=== PATIENT | female | born 1985 | race Caucasian/White ===

== ENCOUNTER 2018-11-14 01:40 | Inpatient (IN) | payer OTHER ==
[2018-11-14] MEDS ORDERED: BUTORPHANOL 2 MG INJ (02:18)
[2018-11-14] MEDS ORDERED: METHYLERGONOVINE 0.2 MG INJ IM ×2 (02:30→06:00)
[2018-11-14] MEDS ORDERED: MISOPROSTOL 200 MCG TAB PR ×2 (02:30→06:00)
[2018-11-14] MEDS ORDERED: IBUPROFEN 600 MG TAB PO (02:30)
[2018-11-14] MEDS ORDERED: CARBOPROST 250 MCG INJ IM ×2 (02:30→06:00)
[2018-11-14] MEDS ORDERED: AMPICILLIN 2 GM/NS (PMX) 100 ML IV (02:30)
[2018-11-14] MEDS ORDERED: OXYTOCIN 30 UNITS/LR 500 ML IV ×2 (02:30→06:00)
[2018-11-14] MEDS ORDERED: LIDOCAINE 1% (MPF) 30 ML INJ INJ (02:30)
[2018-11-14 02:34] LABS: ADD MAN DIFF? NO
[2018-11-14] MEDS: LACTATED RINGER'S 1,000 ML IV ×2 (02:34→03:26)
[2018-11-14 02:38] LABS: BASOPHILS % 0.4 % (0.0-2.0); EOSINOPHILS # 0.1 10^3/ul (0.0-0.5); EOSINOPHILS % 1.5 % (0.0-7.0); HEMOGLOBIN 11.9 g/dl (12.0-16.0); LYMPHOCYTES # 2.2 10^3/ul (0.8-2.9); LYMPHOCYTES % 27.1 % (15.0-51.0); MEAN CORPUSCULAR HEMOGLOBIN 28.5 pg (29.0-33.0); MEAN CORPUSCULAR HGB CONC 32.2 g/dl (32.0-37.0); MEAN CORPUSCULAR VOLUME 88.7 fl (82.0-101.0); MEAN PLATELET VOLUME 11.4 fl (7.4-10.4); MONOCYTE # 0.8 10^3/ul (0.3-0.9); MONOCYTES % 9.8 % (0.0-11.0); NEUTROPHIL # 4.9 10^3/ul (1.6-7.5); NEUTROPHILS % 60.8 % (39.0-77.0); PLATELET COUNT 192 10^3/UL (140-415); RED BLOOD COUNT 4.17 10^6/ul (4.20-5.40); RED CELL DISTRIBUTION WIDTH 14.3 % (11.5-14.5)
[2018-11-14] MEDS: BUTORPHANOL 2 MG INJ IV (02:43)
[2018-11-14 02:58] LABS: INR 0.82; PARTIAL THROMBOPLASTIN TIME 25.4 Sec (23.0-35.0); PROTIME 11.4 Sec (11.9-14.9); PT RATIO 0.9
[2018-11-14 02:59] LABS: AMPHETAMINE/METHAMPHETAMINE Negative (NEGATIVE); BARBITURATES Negative (NEGATIVE); BENZODIAZEPINES Negative (NEGATIVE); CANNABINOIDS Negative (NEGATIVE); COCAINE Negative (NEGATIVE); OPIATES Negative (NEGATIVE)
[2018-11-14] MEDS ORDERED: ROPIVACAINE 0.2% 100 ML (03:23)
[2018-11-14] MEDS ORDERED: HYDROmorphONE 0.5 MG/0.5 ML SYG IV ×2 (03:30)
[2018-11-14] MEDS ORDERED: ONDANSETRON 4 MG INJ IV (03:30)
[2018-11-14] MEDS ORDERED: DIPHENHYDRAMINE 50 MG INJ IV (03:30)
[2018-11-14] MEDS ORDERED: KETOROLAC 30 MG INJ IV (03:30)
[2018-11-14] MEDS ORDERED: NALOXONE (0.4 MG/ML) INJ IV (03:30)
[2018-11-14] MEDS ORDERED: ROPIVACAINE 0.2% 100ML BAG EPI (03:30)
[2018-11-14 03:48] LABS: HEPATITIS B SURFACE ANTIGEN NEGATIVE (NEGATIVE)
[2018-11-14] MEDS: OXYTOCIN 30 UNITS/LR 500 ML IV ×2 (04:01→04:13)
[2018-11-14] MEDS: IBUPROFEN 600 MG TAB PO ×4 (06:00→23:34)
[2018-11-14] MEDS ORDERED: OXYCODONE/ASPIRIN (4.88/325) TAB PO (06:00)
[2018-11-14] MEDS ORDERED: ZOLPIDEM 5 MG TAB PO (06:00)
[2018-11-14] MEDS: BENZOCAINE 20% 56 ML SPRAY TOP (06:24)
[2018-11-14] MEDS: WITCH HAZEL/GLYCERIN PAD PR (06:25)
[2018-11-14] MEDS: LANOLIN HPA 1 PKT TOP (06:25)
[2018-11-14] MEDS ORDERED: AMPICILLIN 1 GM/NS (PMX) 50 ML IV (06:30)
[2018-11-14] MEDS: SENNA/DOCUSATE NA (8.6MG/50MG) TAB PO ×2 (09:28→21:03)
[2018-11-14 19:24] LABS: RAPID PLASMA REAGIN NONREACTIVE (NR)
[2018-11-14] MEDS: OXYCODONE/ASPIRIN (4.88/325) TAB PO (19:43)
[2018-11-15] MEDS: IBUPROFEN 600 MG TAB PO ×3 (05:27→17:52)
[2018-11-15 08:20] LABS: ADD MAN DIFF? NO
[2018-11-15 08:32] LABS: WHITE BLOOD COUNT 6.8 10^3/ul (4.8-10.8)
[2018-11-15 08:32] LABS: BASOPHILS % 0.6 % (0.0-2.0); EOSINOPHILS # 0.2 10^3/ul (0.0-0.5); EOSINOPHILS % 2.5 % (0.0-7.0); HEMATOCRIT 33.4 % (37.0-47.0); HEMOGLOBIN 10.7 g/dl (12.0-16.0); LYMPHOCYTES % 29.7 % (15.0-51.0); MEAN CORPUSCULAR HEMOGLOBIN 28.5 pg (29.0-33.0); MEAN CORPUSCULAR VOLUME 88.8 fl (82.0-101.0); MEAN PLATELET VOLUME 11.4 fl (7.4-10.4); MONOCYTE # 0.5 10^3/ul (0.3-0.9); MONOCYTES % 7.5 % (0.0-11.0); NEUTROPHILS % 59.1 % (39.0-77.0); PLATELET COUNT 161 10^3/UL (140-415); RED BLOOD COUNT 3.76 10^6/ul (4.20-5.40); RED CELL DISTRIBUTION WIDTH 14.6 % (11.5-14.5)
[2018-11-15] MEDS: SENNA/DOCUSATE NA (8.6MG/50MG) TAB PO ×2 (08:35→21:26)
[2018-11-16] MEDS: IBUPROFEN 600 MG TAB PO ×4 (05:31→18:00)
[2018-11-16] MEDS: SENNA/DOCUSATE NA (8.6MG/50MG) TAB PO ×2 (09:00→21:00)
[2018-11-16] MEDS: DIPHTH/TET/ACEL PERTUSS (ADULT) 0.5 ML VIAL IM* (09:00)
== END 2018-11-16 20:15 | disposition home or self-care (01) | DRG 807 ==
LOC: OBT 01:40 → L-D 01:43 → OBT 01:56 → L-D 01:54 → PP1 05:52
PROC: 10E0XZZ Delivery of Products of Conception, External Approach (ICD-10-PCS; principal; 2018-11-14)
PROC: 3E033VJ Introduction of Other Hormone into Peripheral Vein, Percutaneous Approach (ICD-10-PCS; 2018-11-14)
DX: O69.81X0 Labor and delivery complicated by cord around neck, without compression, not applicable or unspecified (principal); Z37.0 Single live birth; Z3A.39 39 weeks gestation of pregnancy
CPT/HCPCS: 80307; 85025; 85610; 85730; 86592; 86850; 86900; 86901; 87340